=== PATIENT | female | born 1935 | race Caucasian/White ===

== ENCOUNTER 2017-05-05 18:33 | Emergency (ER) | payer MEDICARE, OTHER ==
--- NOTE | 2017-05-05 19:46 | ED Physician Documentation ---
PD HPI HEAD INJURY - Stated complaint Stated Complaint: GLF - FACE INJURY - Chief complaint Chief Complaint: Heent - History obtained from History obtained from: Patient - History of Present Illness Mechanism of head injury: Fell (she says she stumbled and fell. No symptoms prior and no LOC. fell and struck nose against cement step edge. 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) Location of injury: Front Quality of pain: Pain Associated symptoms: No: LOC, AMS, Nausea / vomiting, Neck pain Symptoms worsen with: Palpation Contributing factors: No: Anticoagulated Similar symptoms before: Has not had sx before Recently seen: Not recently seen Review of Systems Constitutional: denies: Fever, Chills Eyes: denies: Loss of vision, Decreased vision Nose: denies: Rhinorrhea / runny nose, Congestion Throat: denies: Sore throat Cardiac: denies: Chest pain / pressure Respiratory: denies: Dyspnea, Cough GI: denies: Nausea, Vomiting, Diarrhea Neurologic: denies: Focal weakness, Numbness PD PAST MEDICAL HISTORY - Past Medical History Cardiovascular: Hypertension Respiratory: None Neuro: None Endocrine/Autoimmune: None - Present Medications Home Medications: Ambulatory Orders Medication Instructions Recorded Confirmed Acetaminophen [Tylenol] 2 tab PO BID PRN 05/05/17 05/05/17 Aspirin 325 mg PO DAILY 05/05/17 05/05/17 Cephalexin [Keflex] 500 mg PO TID #21 capsule 05/05/17 Cyanocobalamin [Vitamin B-12] 1 ml IM ONCE 05/05/17 05/05/17 Estradiol [Estrace] 1 tab PO DAILY 05/05/17 05/05/17 Hydrochlorothiazide 12.5 mg PO DAILY 05/05/17 05/05/17 Isosorbide Mononitrate ER [Imdur] 30 mg PO DAILY 05/05/17 05/05/17 Levothyroxine [Synthroid] 1 tab PO DAILY 05/05/17 05/05/17 Lisinopril 10 mg PO DAILY 05/05/17 05/05/17 Rosuvastatin Calcium [Crestor] 1 tab PO DAILY 05/05/17 05/05/17 - Allergies Allergies/Adverse Reactions: Allergies Allergy/AdvReac Type Severity Reaction Status Date / Time azithromycin [From Zithromax] Allergy Rash Verified 05/05/17 20:22 PD ED PE NORMAL - Vitals Vital signs reviewed: Yes - General General: Alert and oriented X 3, No acute distress, Well developed/nourished, Other (mild oozing of nosebleed, stops with pinching. Bruising noted already on both lower lids medially and on bridge of nose. Small lac on bridge of nose without FB. Minimal bleeding. Amenable to steristrips. ) - HEENT HEENT: PERRL, EOMI (no pain nor diplopia), Pharynx benign, Dentition benign - Neck Neck: Supple, no meningeal sign, No bony TTP, No adenopathy - Cardiac Cardiac: RRR, No murmur - Respiratory Respiratory: Clear bilaterally, Other (no chestwall tenderness) - Abdomen Abdomen: Soft, Non tender - Back Back: No CVA TTP, No spinal TTP - Derm Derm: Normal color, Warm and dry - Extremities Extremities: No tenderness to palpate, Normal ROM s pain - Neuro Neuro: Alert and oriented X 3, hall cleaner 2-12 intact, No motor deficit, No sensory deficit, Normal speech - Psych Psych: Normal mood, Normal affect Results - Vitals Vitals: Vital Signs - 24 hr 05/05/17 05/05/17 18:45 20:54 Temperature 36 C L Heart Rate 74 68 Respiratory 16 16 Rate Blood Pressure 196/71 H 177/67 H O2 Saturation 100 95 Oxygen O2 Source Room air - Rads (name of study) facial CT Radiology: Prelim report reviewed (complex nasal fracture with some blood in sinus. Orbital bones okay. ) PD MEDICAL DECISION MAKING - ED course Complexity details: reviewed results (complex nasal fracture. No sinus/orbital fractures. They are visiting from [place], so given CD of their imaging and will follow up with ENT through their PMD. ), considered differential (no concussive symptoms and not on blood thinners. Steri-strips to nose lac. ), d/w patient, d/ w family (daughter) Departure - Departure Disposition: 01 Home, Self Care Clinical Impression: Accidental fall Qualifiers: Encounter type: initial encounter Qualified Code(s): W19.XXXA - Unspecified fall, initial encounter Nasal bone fracture Qualifiers: Encounter type: initial encounter Fracture type: closed Qualified Code(s): S02.2XXA - Fracture of nasal bones, initial encounter for closed fracture Hand contusion Qualifiers: Encounter type: initial encounter Laterality: right Qualified Code(s): S60.221A - Contusion of right hand, initial encounter Condition: Stable Record reviewed to determine appropriate education?: Yes Instructions: ED Fx Nose W Lac Skin Glue Prescriptions: Cephalexin [Keflex] 500 mg PO TID #21 capsule Comments: Leave the packing in until tomorrow and then remove it easily. Tylenol or ibuprofen if needed for pains. He drove a broken nose and should follow-up with an hearth feeder in 1-2 weeks for recheck. Get a referral from your primary care. Cephalexin 3 times a day for a week to pena off infection. Sleep with her head slightly elevated to reduce swelling. Ice or cold towels are okay to. Discharge Date/Time: 05/05/17 22:12
[2017-05-05] MEDS ORDERED: OXYMETAZOLINE NASAL SPRAY NAS STA (20:21)
[2017-05-05] MEDS ORDERED: ACETAMINOPHEN 325 MG TABLET PO STA (20:21)
[2017-05-05] MEDS ORDERED: ACETAMINOPHEN 325 MG TABLET PO ONE (20:42)
[2017-05-05] MEDS ORDERED: OXYMETAZOLINE NASAL SPRAY NAS ONE (20:42)
[2017-05-05 20:56] VITALS: BP 177/67
--- NOTE | 2017-05-05 21:19 | XRAY Preliminary Report ---
Exam: XR Hand 3 View RT IMPRESSION: 1. No acute bony abnormality. 2. Extensive inflammatory arthropathy involving the fingers. [facility] SITE ID: [id number]
--- NOTE | 2017-05-05 21:25 | CT Preliminary Report ---
Exam: CT Facial Bones W/O IMPRESSION: Complex nasal fracture with bleeding into the paranasal sinuses. [facility] SITE ID: [id number]
--- NOTE | 2017-05-05 21:27 | CT Report ---
EXAM: CT MAXILLOFACIAL WITHOUT CONTRAST EXAM DATE: 05/05/2017 08:43 PM. CLINICAL HISTORY: Fall with face injury. COMPARISONS: None. TECHNIQUE: Thin-section axial images were acquired of the face without contrast. Post-processing: Cor onal and sagittal reformats. Other: None. In accordance with CT protocol optimization, one or more of the following dose reduction techniques w ere utilized for this exam: automated exposure control, adjustment of mA and/or KV based on patient s ize, or use of iterative reconstructive technique. FINDINGS: Bones: Comminuted fracture of the superior nasal spine with depression of some fracture fragments. In ferior nasal spine is intact. Complex fracture lines extend into both nasal alae with mild depression and overriding of fracture fragments. The nasal septum is deviated about 3 mm to the right. There is also fracture at multiple sites in the nasal septum. No other definite fracture or bone lesion. Temporomandibular Joints: The temporomandibular joints are symmetric and normally located. Sinuses: Air-fluid levels in maxillary, sphenoid, and left ethmoid sinuses. Frontal sinus remains ward ar. Unremarkable visualized mastoid air cells. Other: Prominent superficial soft tissue swelling with small amounts of subcutaneous emphysema. Orbit al contents appear intact. IMPRESSION: Complex nasal fracture with bleeding into the paranasal sinuses. [facility] Referring Provider Line: [phone] SITE ID: [id number]
--- NOTE | 2017-05-05 21:28 | XRAY Report ---
EXAM: RIGHT HAND RADIOGRAPHY EXAM DATE: 05/05/2017 08:40 PM. CLINICAL HISTORY: Fall with palm pain. COMPARISON: None. TECHNIQUE: 3 views. FINDINGS: Bones: Normal. No fractures or bone lesions. Joints: Moderate to marked inflammatory arthropathy involving the interphalangeal joints with less th an 10% subluxation. No erosion of the metacarpal heads. Minimal noninflammatory changes involving the rest of the joints. Soft Tissues: Finger edema, greatest at the PIP joints. IMPRESSION: 1. No acute bony abnormality. 2. Extensive inflammatory arthropathy involving the fingers. [facility] Referring Provider Line: [phone] SITE ID: [id number]
[2017-05-05] MEDS ORDERED: CEPHALEXIN 250 MG CAPSULE PO STA (21:54)
[2017-05-05] MEDS ORDERED: CEPHALEXIN 250 MG CAPSULE PO ONE (22:02)
== END 2017-05-05 22:12 | disposition home or self-care (01) ==
LOC: ED 18:33
DX: S02.2XXA Fracture of nasal bones, initial encounter for closed fracture (principal); S60.221A Contusion of right hand, initial encounter; I10 Essential (primary) hypertension; W01.0XXA Fall on same level from slipping, tripping and stumbling without subsequent striking against object, initial encounter
CPT/HCPCS: 70486; 73130; 99283; A9270